=== PATIENT | female | born 1965 | race Hispanic/Latino ===

== ENCOUNTER 2023-08-08 06:23 | Emergency (ER) | payer OTHER ==
[~2023-08-08] VITALS: Ht 160 cm; Wt 78.0 kg
[~2023-08-08 06:23] MED LIST: DIOVAN160 M1 PO
[2023-08-08] MEDS ORDERED: ZESTORETIC 20-1 EAC1 (07:01)
[2023-08-08] MEDS ORDERED: ZOLOFT50 MG (07:01)
[2023-08-08] MEDS ORDERED: ONDANSETRON HCL 2 MG/ML VIAL IV STA (07:20)
[2023-08-08] MEDS ORDERED: FAMOTIDINE/PF 20 MG/2 ML VIAL IV PUSH STA (07:21)
[2023-08-08] MEDS ORDERED: MEPERIDINE HCL/PF 25 MG/ML VIAL IM STA (07:24)
[2023-08-08] MEDS ORDERED: 0.9 % SODIUM CHLORIDE 1,000 ML IV ONE (07:30)
[2023-08-08 08:14] LABS: PH,URINE 7.5 (5.0-8.0); URINE APPEARANCE Clear; URINE BILIRRUBIN Negative (NEGATIVE); URINE BLOOD Negative; URINE COLOR Yellow; URINE GLUCOSE Negative (NEGATIVE); URINE KETONE Negative (NEGATIVE); URINE LEUKOCYTE Negative; URINE NITRATE Negative; URINE PROTEIN Negative (NEGATIVE)
[2023-08-08 08:16] LABS: URINE BACTERIA 27.7 uL (0.0-1933); URINE EPITHELIAL CELLS 3.2 uL (0.0-38.8); URINE RBC 3.7 uL (0.0-20.8); URINE WBC 1.8 uL (0.0-23.2)
[2023-08-08 08:19] LABS: HEMATOCRIT 37.9 % (36.0-45.00); HEMOGLOBIN 12.5 g/dL (12.0-15.00); MEAN CELL VOLUME 83.6 fL (80.00-100.00); MEAN CORPUSCULAR HEMOGLOBIN 27.5 pg (27.00-32.0); MEAN CORPUSCULAR HGB CONC 32.9 g/dl (32.0-36.0); PLATELET COUNT 187 K/uL (150-450); RED BLOOD COUNT 4.54 M/uL (4.00-6.00); RED CELL DISTRIBUTION WIDTH 13.6 % (11.5-14.5)
[2023-08-08 09:10] LABS: INR 1.03; PARTIAL THROMBOPLASTIN TIME 31.7 SECONDS (22.0-34.0); PROTHROMBIN TIME 10.8 SECONDS (9.0-11.5)
[2023-08-08 09:17] LABS: ALBUMIN 3.6 gm/dL (3.4-5.0); BILIRUBIN TOTAL 1.18 mg/dL (0.3-1.2); BILIRUBIN,CONJUGATED 0.27 mg/dL (0.0-0.2); BILIRUBIN,UNCONJUGATED 0.91 mg/dL (0.0-0.6); CALCIUM 9.3 mg/dL (8.5-10.1); CREATININE SERUM 0.85 mg/dL (0.55-1.02); GFR 68.45; GLOBULINA 3.9 G/DL (2.4-3.5); POTASSIUM 3.8 mEq/L (3.5-5.1); TOTAL PROTEIN 7.5 gm/dL (6.4-8.2)
== END 2023-08-08 14:57 | disposition home or self-care (01) ==
LOC: ER 06:24
PROVIDERS: General Practice
DX: R10.9 Unspecified abdominal pain (principal); I10 Essential (primary) hypertension; Z88.0 Allergy status to penicillin
CPT/HCPCS: 36415; 74177; Q9965